=== PATIENT | male | born 2000 | race Caucasian/White ===

== ENCOUNTER → 2025-03-18 09:59 | Outpatient (REF) | payer BC, SELFPAY | LOC: HWRAD 09:59 | PROVIDERS: ATTENDING PHYSICIAN Internal Medicine Gastroenterology; FAMILY PHYSICIAN Registered Nurse | DX: R10.13 Epigastric pain (principal) | CPT/HCPCS: 76700 ==

== ENCOUNTER 2025-03-24 06:20 | Day surgery (SDC) | payer BC, SELFPAY | END 2025-03-24 11:26 | disposition home or self-care (01) | LOC: GI 06:20 | PROVIDERS: ATTENDING PHYSICIAN Internal Medicine Gastroenterology | DX: R11.2 Nausea with vomiting, unspecified (principal); K20.90 Esophagitis, unspecified without bleeding; K64.8 Other hemorrhoids; K62.5 Hemorrhage of anus and rectum | CPT/HCPCS: 43239; 45330; 88305 ==